=== PATIENT | female | born 1965 | race Caucasian/White ===

== ENCOUNTER 2020-01-22 17:10 | Emergency (ER) | payer OTHER ==
[~2020-01-22] VITALS: Ht 185.4 cm; Wt 74.2 kg
[2020-01-22 17:10] VITALS: BP 102/61
[2020-01-22] MEDS ORDERED: IV NORMAL SALINE 1,000ML 1,000 ML IV ONE ×2 (18:15→20:00)
--- NOTE | 2020-01-22 18:42 | PHYS DOC ---
Past History Past Medical History: No Pertinent History Past Surgical History: Hysterectomy Alcohol Use: Occasionally Adult General Chief Complaint Chief Complaint: MULTIPLE COMPLAINTS HPI HPI Patient is a 54-year-old female who presents for URI-like symptoms and diarrhea. Onset of symptoms was 2 days ago. Nothing known makes better or worse. Patien t denies any pain. Patient reports flying and visiting family in [place] 1 week ago. Unknown if she was in contact with any known COVID-19 positive individuals. Patient has had ongoing clear rhinorrhea and postnasal drip with looser stools than usual. Denies any recent medication changes, antibiotics, or other concerning risk factors for C. difficile infection. Patient had recorded temp of 102.0 prior to arrival prompting her to take 600 mg Motrin prior to arrival for evaluation at our ER today. Of note, patient healthy, denies any daily medications, has no chronic or concerning comorbidities Review of Systems Review of Systems Fourteen body systems of review of systems have been reviewed. See HPI for pertinent positives and negative responses, other hernandez all other systems are negative, non-pertinent or non-contributory Current Medications Current Medications Current Medications Medications (Trade) Dose Ordered Sig/Marta Start Time Stop Time Status Last Admin Dose Admin Ondansetron HCl (Zofran) 4 mg 1X ONCE 01/22/20 18:45 01/22/20 18:46 Sodium Chloride 1,000 ml @ 40 mls/hr 1X ONCE 01/22/20 18:15 01/23/20 19:14 Allergies Allergies Allergies Coded Allergies Type Severity Reaction Last Updated Verified No Known Drug Allergies 01/22/20 No Physical Exam Physical Exam Constitutional: Well developed, well nourished, no acute distress, non-toxic appearance. HENT: Normocephalic, atraumatic, bilateral external ears normal, oropharynx moist, postnasal drip present, no oral exudates, external nose unremarkable, clear rhinorrhea present, mildly engorged nasal turbinates bilaterally Eyes: PERRLA, EOMI, conjunctiva normal, no discharge. Neck: Normal range of motion, no tenderness, supple, no stridor. Cardiovascular: Heart rate regular, sinus rhythm, no murmurs rubs or gallops Lungs & Thorax: Bilateral breath sounds clear to auscultation Abdomen: Bowel sounds normal, soft, no tenderness, no masses, no pulsatile masses. Nonsurgical abdomen, no peritoneal signs Skin: Warm, dry, no erythema, no rash. Back: No tenderness, no CVA tenderness. Extremities: No tenderness, no cyanosis, no clubbing, ROM intact, no edema. Neurologic: Alert and oriented X 3, grossly normal motor & sensory function, no focal deficits noted. Psychologic: Affect normal, judgement normal, mood normal. Current Patient Data Vital Signs Vital Signs Date Time Temp Pulse Resp B/P (MAP) Pulse Ox O2 Delivery O2 Flow Rate FiO2 01/22/20 17:10 100.3 93 20 102/61 (75) 97 Room Air Lab Results Laboratory Tests Test 01/22/20 18:44 White Blood Count 7.7 x10^3/uL (4.0-11.0) Red Blood Count 4.63 x10^6/uL (3.50-5.40) Hemoglobin 14.1 g/dL (12.0-15.5) Hematocrit 41.5 % (36.0-47.0) Mean Corpuscular Volume 90 fL (79-100) Mean Corpuscular Hemoglobin 31 pg (25-35) Mean Corpuscular Hemoglobin Concent 34 g/dL (31-37) Red Cell Distribution Width 12.8 % (11.5-14.5) Platelet Count 184 x10^3/uL (140-400) Neutrophils (%) (Auto) 91 % (31-73) Lymphocytes (%) (Auto) 6 % (24-48) Monocytes (%) (Auto) 3 % (0-9) Eosinophils (%) (Auto) 0 % (0-3) Basophils (%) (Auto) 0 % (0-3) Neutrophils # (Auto) 7.0 x10^3uL (1.8-7.7) Lymphocytes # (Auto) 0.5 x10^3/uL (1.0-4.8) Monocytes # (Auto) 0.2 x10^3/uL (0.0-1.1) Eosinophils # (Auto) 0.0 x10^3/uL (0.0-0.7) Basophils # (Auto) 0.0 x10^3/uL (0.0-0.2) Sodium Level 135 mmol/L (136-145) Potassium Level 3.8 mmol/L (3.5-5.1) Chloride Level 99 mmol/L (98-107) Carbon Dioxide Level 28 mmol/L (21-32) Anion Gap 8 (6-14) Blood Urea Nitrogen 8 mg/dL (7-20) Creatinine 1.0 mg/dL (0.6-1.0) Estimated GFR (Cockcroft-Gault) 58.0 BUN/Creatinine Ratio 8 (6-20) Glucose Level 167 mg/dL (70-99) Calcium Level 9.2 mg/dL (8.5-10.1) Total Bilirubin 1.8 mg/dL (0.2-1.0) Aspartate Amino Transf (AST/SGOT) 19 U/L (15-37) Alanine Aminotransferase (ALT/SGPT) 20 U/L (14-59) Alkaline Phosphatase 94 U/L (46-116) Troponin I Quantitative < 0.017 ng/mL (0-0.055) Total Protein 7.2 g/dL (6.4-8.2) Albumin 3.7 g/dL (3.4-5.0) Albumin/Globulin Ratio 1.1 (1.0-1.7) Lipase 105 U/L (73-393) EKG EKG EKG ordered and interpreted by myself at 1841 hrs. as sinus rhythm at 84 bpm, unremarkable intervals, no axis deviation, no acute ischemic findings, no STEMI Radiology/Procedures Radiology/Procedures PROCEDURE: PORTABLE CHEST 1V PORTABLE CHEST 1V Clinical History: Reason: SOB, FEVER / Spl. Instructions: / History: Technique: AP view of the chest was obtained at 01/22/2020 12:00 AM. Comparison: None. Findings: The cardiomediastinal silhouette is normal. The pulmonary vasculature is normal. The lungs and pleural margins are clear. Impression: No evidence of an acute cardiopulmonary process. Electronically signed by: Omar Washington III, MD (01/22/2020 7:29 PM) [facility] Course & Med Decision Making Course & Med Decision Making Patient seen on immediate ER arrival Airway patent, breathing unlabored, vitals remarkable for hypotensive reading approximately 100s over 60s. IV access obtained Comprehensive history and physical obtained, subsequent diagnostic studies ordered A total of 2 L IV normal saline, 650 mg Tylenol, 4 mg IV Zofran, and 4 mg p.o. loperamide administered with moderate relief in symptoms Patient examined serially by numerous medical authorization specialist with improvement in condition throughout visit ER work-up discussed, grossly non-concerning for any emergent or surgical findings. Discussed most likely diagnosis of diarrhea secondary to COVID-19 versus gastroenteritis Also discussed this might be an acute presentation of more concerning pathology such as systemic infection versus other Ultimately, after therapy provided above, patient sided good home support and wa s ready for discharge home with continued supportive care advised, I feel this is appropriate as patient is tolerating p.o. and has good access to a PCP in outpatient setting Strict return precautions were discussed with good understanding by patient, all questions and concerns addressed prior to ER departure in stable condition Patient educated extensively on COVID-19 pathophysiology and need for quarantining until our test today comes back, she understood these well and was sent home with extensive education regarding being a person under investigation Daneile Disclaimer Daniele Disclaimer This electronic medical record was generated, in whole or in part, using a voice recognition dictation system. Departure Departure: Impression: Primary Impression: Person under investigation for COVID-19 Additional Impressions: Diarrhea Dehydration Disposition: HOME/RESIDENCE PRIOR TO ADM Condition: STABLE Referrals: PCP,NO (PCP) Patient Instructions: Dehydration, Adult, Diarrhea Additional Instructions: Short You were evaluated in the Emergency Department today for a cough. Your evaluation suggests a viral infection such as Coronavirus. It is important that you continue to self isolate and practice good hygiene at home. Please follow up with your primary care physician as discussed. Return to the Emergency Department if you experience worsening cough, fever, shortness of breath, recurrent vomiting, lethargy, or any other concerning symptoms. Thank you for choosing us for your care. Usted fue evaluado en el Departamento de Emergencia hoy por tos. Sin evaluacin sugiere narayan infeccin viral baldo el coronavirus. Es importante que contine aislndose y practicando narayan buena higiene en el hogar. Jayesh un seguimiento con sin mdico de atencin primaria baldo se discuti. Regrese al Departamento de Emergencias si experimenta un empeoramiento de la tos, fiebre, falta de aliento, vmitos recurrentes, letargo o cualquier otro sntoma relacionado. Eloy por elegir nosotros para sin atencin. Home Care Instructions for Patients with Mild Respiratory Infection Most people with respiratory infections like colds, the flu, and Coronavirus Disease (COVID-19) will have mild illness and can get better with appropriate home care and without the need to see a provider. People who are elderly, , or have a weak immune system, or other medical problem are at higher risk of more serious illness or complications. It is recommended that they carefully monitor their symptoms closely and seek medical care early if their symptoms get worse. TREATMENT AND MEDICAL CARE Treatment There is no specific treatment for most viruses including those that that cause the common cold and those that cause COVID-19. Sometimes there is treatment for the viruses that cause influenza if given early. Antibiotics treat infections ca used by bacteria, but they do not work against viruses.Most people recover on their own from these viruses, including COVID-19. Here are steps that you can take to help you get better: Rest Drink plenty of fluids Take sfaq-stu-voqncsd cold and flu medications to reduce fever and pain. Follow the instructions on the package, unless your doctor gave you instructions. Note that these medicines do not ``cure the illness and therefore do not stop you from spreading germs. Children should not be given medication that contains aspirin (acetylsalicylic acid) because it can cause a rare but serious illness called Roe syndrome. M edicines without aspirin include acetaminophen (Tylenol) and ibuprofen (Advil, Motrin). Children younger than age 2 should not be given any rzmz-mnb-rujduks cold medications without first speaking with a doctor.Seeking Medical Care You should seek medical care if you are not getting better within a week, or if your symptoms get worse. If you are elderly, , have a weak immune system, or other medical problems, call your doctor right away. It is best to call ahead of time to discuss your symptoms, if possible. This may allow you to receive the advice you need by phone. By avoiding a visit to a healthcare facility, you protect yourself from getting a new infection and protect others from catching an infection from you. If you do visit a healthcare facility, put on a mask to protect other patients and staff. It is recommended that you seek medical care for serious symptoms, such as: People with potentially life-threatening symptoms should call 911. If possible, put on a facemask before emergency medical services arrive.PROTECTING OTHERS Follow the steps below to help prevent the disease from spreading to people in your home and community.Stay home when you are sick Stay home - do not go to work, school, or public areas. Stay home for at least 24 hours after your symptoms have gone away without the use of fever-reducing medicines. If you must leave home while you are sick, try to avoid using public transportation, ride-shares, and taxis. Wear a mask if possible. Separate yourself from other people and animals in your home Stay in a specific room and away from other people in your home as much as possible. Use a separate bathroom, if available. Try to stay at least 6 feet from others. Do not handle pets or other animals while you are sick. Cover your coughs and sneezes Cover your mouth and nose with a tissue when you cough or sneeze. Throw used tissues in a lined trash can; immediately wash your hands. Avoid sharing personal household items Do not share dishes, drinking glasses, cups, eating utensils, towels, or bedding with other people or pets in your home. Wash them thoroughly with soap and water after use. Clean your hands often Wash your hands often with soap and water for at least 20 seconds. If soap and water are not available, clean your hands with an alcohol-based hand outside sales professional that contains at least 60% alcohol, covering all surfaces of your hands and rubbing them together until they feel dry. Use soap and water if your hands are visibly dirty. Clean all ``high-touch surfaces every day High touch surfaces include counters, tabletops, doorknobs, bathroom fixtures, toilets, phones, keyboards, tablets, and bedside tables. Also, clean any surfaces that may have body fluids on them. Use a household cleaning spray or wipe, according to the product label instructions. COVID-19 (Novel Coronavirus) FAQs for Inquiring Patients What do you do if you are worried that you have been exposed to COVID-19 but are without any symptoms? If you develop symptoms that may indicate an infection, contact your physician. These include fever, cough, and shortness of breath. Testing is not available for asymptomatic individuals, regardless of travel history. To reduce the chance of getting sick use general infection prevention measures such as hand washing, covering your mouth and nose when you cough or sneeze and discarding any tissues carefully, and staying home when you are sick.Can exceptions be made for patients who are really worried and want to be tested? Presently testing is only available through the [facility] Department of Public Health and Centers for Disease Control and Prevention. Only patients who meet the updated COVID-19 PUI definition may be tested. We do not control or set the PUI definition or evaluation criteria. We are unable to provide testing to patients who do not meet the strict criteria. Should patients cancel or postpone an upcoming trip? The decision about travel is personal and should be made in the context of a persons underlying health conditions, reason for travel and necessity of travel. Travel insurance generally does not cover cancellations due to concerns of infectious disease outbreaks. The Center for Disease Control has a section on travel notices. Situations are changing frequently and you should monitor the site for updates. Should situations change rapidly in a foreign country while they are traveling, you could be subject to quarantine or restrictions upon return to the [facility]. It is best to have a plan on how to return urgently if needed during a trip abroad. Because of how air circulates and is filtered on airplanes, most viruses do not spread easily on airplanes. CDC does not recommend use of facemasks during air travel.What other general precautions are advised? Patients should be instructed to: Avoid close contact with people who are sick. Avoid touching your eyes, nose and mouth. Stay home from work or school when they are sick. If you have a fever, you should remain home until 24 hours after fever resolves. Clean and disinfect frequently touched objects and surfaces using a regular household cleaning spray or wipe. Sneeze/cough into their elbow, not your hand. Practice frequent hand hygiene with soap and water (at least 20 seconds) or alcohol-based hand rub. Consider avoiding crowded places or mass gatherings, especially if you are immunocompromised or have chronic lung disease. There is no evidence to support transmission of COVID-19 from goods imported from [place]. Are there any special precautions that are recommended if I am ? There is not yet any information available about the susceptibility of women to COVID-19. As a general rule, women may be more susceptible to viral respiratory infections and at risk for more severe illness. The CDC guidance for COVID-19 and has answers to questions about transmission during delivery, as well as other situations. Should food, water, or medications be stockpiled? Should people telecommute? The CDC has excellent information on this. Please visit the CDCs guidance for getting your household ready for COVID-19. What should I do if I start feeling sick at work? And what should the workplace do for anyone exposed? Anyone who is sick with a fever and cough should stay home from work until at least 24 hours after resolution of fever, regardless of concerns for COVID-19. It is still influenza (flu) season and influenza remains far more common. Justification of Admission: Justification of Admission: Justification of Admission Dx: N/A Problem Qualifiers MINH LONDONO DO Jan 22, 2020 18:42
[2020-01-22] MEDS ORDERED: ONDANSETRON PF 4 MG/2 ML VIAL. IVP ONE (18:45)
[2020-01-22 19:16] LABS: BASO % 0 % (0-3); EOS % 0 % (0-3); HEMATOCRIT 41.5 % (36.0-47.0); HEMOGLOBIN 14.1 g/dL (12.0-15.5); LYMPH # 0.5 x10^3/uL (1.0-4.8); LYMPH % 6 % (24-48); MEAN CORPUSCULAR HEMOGLOBIN 31 pg (25-35); MEAN CORPUSCULAR HGB CONC 34 g/dL (31-37); MEAN CORPUSCULAR VOLUME 90 fL (79-100); MONO # 0.2 x10^3/uL (0.0-1.1); MONO % 3 % (0-9); NEUT % 91 % (31-73); PLATELET COUNT 184 x10^3/uL (140-400); RED BLOOD COUNT 4.63 x10^6/uL (3.50-5.40); RED CELL DISTRIBUTION WIDTH 12.8 % (11.5-14.5); WHITE BLOOD COUNT 7.7 x10^3/uL (4.0-11.0)
[2020-01-22 19:21] LABS: CALCIUM 9.2 mg/dL (8.5-10.1); POTASSIUM 3.8 mmol/L (3.5-5.1)
[2020-01-22 19:27] LABS: ALBUMIN 3.7 g/dL (3.4-5.0); ALBUMIN/GLOBULIN RATIO 1.1 (1.0-1.7); TOTAL BILIRUBIN 1.8 mg/dL (0.2-1.0); TOTAL PROTEIN 7.2 g/dL (6.4-8.2)
[2020-01-22] MEDS ORDERED: ACETAMINOPHEN 325 MG TABLET PO ONE (19:30)
--- NOTE | 2020-01-22 19:32 | RAD ---
PORTABLE CHEST 1V Clinical History: Reason: SOB, FEVER / Spl. Instructions: / History: Technique: AP view of the chest was obtained at 01/22/2020 12:00 AM. Comparison: None. Findings: The cardiomediastinal silhouette is normal. The pulmonary vasculature is normal. The lungs and pleural margins are clear. Impression: No evidence of an acute cardiopulmonary process. Electronically signed by: Omar Washington III, MD (01/22/2020 7:29 PM) [facility]
[2020-01-22] MEDS ORDERED: LOPERAMIDE 2 MG CAPSULE PO ONE (20:00)
--- NOTE | 2020-01-22 23:28 | EKG ---
[facility] ED [facility] [place] [id number] Test Date: 2020-01-22 Test Time: 18:31:44 Pat Name: DELFINA MERIDA Department: Room: Gender: F Data Scientist: : 1965 Requested By: MINH LONDONO Order Number: [id number] Reading MD: Measurements Intervals [place] Rate: 84 P: 59 CA: 142 QRS: 73 QRSD: 78 T: 51 QT: 352 QTc: 419 Interpretive Statements SINUS RHYTHM NORMAL ECG RI6.02 No previous ECG available for comparison
== END 2020-01-22 21:20 | disposition home or self-care (01) ==
LOC: ER 17:10
DX: R19.7 Diarrhea, unspecified (principal); E86.0 Dehydration; Z20.828 Contact with and (suspected) exposure to other viral communicable diseases
CPT/HCPCS: 36415; 71045; 80053; 83690; 84484; 85025; 93005; 96361; 96374; 99285; J2405; J7030; U0003

== ENCOUNTER 2020-01-24 06:57 | Emergency (ER) | payer OTHER ==
[~2020-01-24] VITALS: Ht 185.4 cm; Wt 74.2 kg
[2020-01-24] MEDS ORDERED: DICYCLOMINE HCL 20 MG TABLET ONE (07:20)
[2020-01-24] MEDS ORDERED: ONDANSETRON PF 4 MG/2 ML VIAL. ONE (07:20)
[2020-01-24] MEDS ORDERED: ACETAMINOPHEN 500 MG TABLET PO ONE ×2 (07:20→07:30)
--- NOTE | 2020-01-24 07:24 | PHYS DOC ---
Past History Past Medical History: No Pertinent History Past Surgical History: Hysterectomy Alcohol Use: Occasionally General Adult HPI: HPI: The history was obtained from the patient. Patient is a 54-year-old female with no reported PMH who presents with a chief complaint of nausea and diarrhea. Patient states she has had nausea and diarrhea over the past 3 days. She notes she was seen in our emergency department 2 days ago and tested for coronavirus. She states the results of her testing is pending. She notes that she had a temperature at her last ER visit. She estimates she has had 15 loose stools per day. She denies any blood in the stool. Denies any recent antibiotics or exposure to well water. Denies any recent travel. Does note that she was in [facility] 1 week ago but denies any known exposure to coronavirus. States that she checked her temperature yesterday noted to be 104.0 but states that she was wrapped up in warm blankets. She denies any dysuria, polyuria, hematuria. Does note some mild diffuse abdominal discomfort she attributes to multiple bowel movements. Denies any previous abdominal surgical history. Denies sore throat, cough, chest pain, or shortness of breath. Denies syncope. Does note some generalized weakness. Has tried Imodium at home with minimal relief. No other complaints. Review of Systems: Review of Systems: Constitutional: Positive for fever Eyes: Denies change in visual acuity HENT: Denies nasal congestion or sore throat Respiratory: Denies cough or shortness of breath Cardiovascular: Denies chest pain or edema GI: Positive for abdominal pain, nausea, diarrhea : Denies dysuria Musculoskeletal: Denies back pain or joint pain Integument: Denies rash Neurologic: Denies headache, focal weakness or sensory changes Endocrine: Denies polyuria or polydipsia Lymphatic: Denies swollen glands Psychiatric: Denies depression or anxiety Heart Score: Risk Factors: Risk Factors: DM, Current or recent (<one month) smoker, HTN, HLP, family history of CAD, obesity. Risk Scores: Score 0 - 3: 2.5% MACE over next 6 weeks - Discharge Home Score 4 - 6: 20.3% MACE over next 6 weeks - Admit for Clinical Observation Score 7 - 10: 72.7% MACE over next 6 weeks - Early Invasive Strategies Allergies: Allergies: Allergies Coded Allergies Type Severity Reaction Last Updated Verified No Known Drug Allergies 01/22/20 No Physical Exam: PE: Constitutional: Well developed, well nourished, no acute distress, non-toxic appearance. [] HENT: Normocephalic, atraumatic, bilateral external ears normal, oropharynx moist, no oral exudates, nose normal. [] Eyes: PERRLA, EOMI, conjunctiva normal, no discharge. [] Neck: Normal range of motion, no tenderness, supple, no stridor. [] Cardiovascular:Heart rate regular rhythm, no murmur [] Lungs & Thorax: Bilateral breath sounds clear to auscultation [] Abdomen: Soft, nontender, nonacute abdomen. No involuntary guarding or rigidity noted. No acute peritonitis. Skin: Warm, dry, no erythema, no rash. [] Back: No tenderness, no CVA tenderness. [] Extremities: No tenderness, no cyanosis, no clubbing, ROM intact, no edema. [] Neurologic: Alert and oriented X 3, normal motor function, normal sensory function, no focal deficits noted. [] Psychologic: Affect normal, judgement normal, mood normal. [] Current Patient Data: Labs: Laboratory Tests Test 01/24/20 07:15 01/24/20 08:40 01/24/20 09:11 White Blood Count 2.5 x10^3/uL Red Blood Count 4.47 x10^6/uL Hemoglobin 13.6 g/dL Hematocrit 39.7 % Mean Corpuscular Volume 89 fL Mean Corpuscular Hemoglobin 31 pg Mean Corpuscular Hemoglobin Concent 34 g/dL Red Cell Distribution Width 12.9 % Platelet Count 157 x10^3/uL Neutrophils (%) (Auto) 74 % Lymphocytes (%) (Auto) 15 % Monocytes (%) (Auto) 11 % Eosinophils (%) (Auto) 0 % Basophils (%) (Auto) 1 % Neutrophils # (Auto) 1.9 x10^3uL Lymphocytes # (Auto) 0.4 x10^3/uL Monocytes # (Auto) 0.3 x10^3/uL Eosinophils # (Auto) 0.0 x10^3/uL Basophils # (Auto) 0.0 x10^3/uL Sodium Level 135 mmol/L Potassium Level 3.8 mmol/L Chloride Level 100 mmol/L Carbon Dioxide Level 26 mmol/L Anion Gap 9 Blood Urea Nitrogen 8 mg/dL Creatinine 0.9 mg/dL Estimated GFR (Cockcroft-Gault) 65.5 BUN/Creatinine Ratio 9 Glucose Level 141 mg/dL Calcium Level 8.6 mg/dL Magnesium Level 1.8 mg/dL Total Bilirubin 1.7 mg/dL Aspartate Amino Transf (AST/SGOT) 23 U/L Alanine Aminotransferase (ALT/SGPT) 19 U/L Alkaline Phosphatase 78 U/L Total Protein 6.7 g/dL Albumin 3.1 g/dL Albumin/Globulin Ratio 0.9 Lipase 69 U/L Urine Collection Type Unknown Urine Color Shelly Urine Clarity Clear Urine pH 5.5 Urine Specific Frederick 1.025 Urine Protein 30 mg/dl Urine Glucose (UA) Neg mg/dL Urine Ketones (Stick) >=160 mg/dL Urine Blood Mod Urine Nitrite Neg Urine Bilirubin Neg Urine Urobilinogen Dipstick 0.2 mg/dL Urine Leukocyte Esterase Neg Urine RBC 6-10 /HPF Urine WBC 1-4 /HPF Urine Squamous Epithelial Cells Few /LPF Urine Bacteria 0 /HPF Urine Mucus Mod /LPF Bedside Urine HCG, Qualitative hcg negative Current Medications Medications (Trade) Dose Ordered Sig/Marta Route PRN Reason Start Time Stop Time Status Last Admin Dose Admin Sodium Chloride 1,000 ml @ 1,000 mls/hr 1X ONCE IV 01/24/20 07:30 01/24/20 08:30 DC 01/24/20 07:40 Metoclopramide HCl (Reglan) 10 mg 1X ONCE PO 01/24/20 07:30 01/24/20 07:31 DC Acetaminophen (Tylenol) 1,000 mg 1X ONCE PO 01/24/20 07:30 01/24/20 07:31 DC 01/24/20 07:39 Dicyclomine HCl (Bentyl) 20 mg 1X ONCE PO 01/24/20 07:30 01/24/20 07:31 DC 01/24/20 07:39 Acetaminophen (Tylenol) 500 mg STK-MED ONCE PO 01/24/20 07:20 01/24/20 07:20 DC Ondansetron HCl (Zofran) 4 mg STK-MED ONCE .ROUTE 01/24/20 07:20 01/24/20 07:20 DC Dicyclomine HCl (Bentyl) 20 mg STK-MED ONCE .ROUTE 01/24/20 07:20 01/24/20 07:20 DC Ondansetron HCl (Zofran) 4 mg 1X ONCE IVP 01/24/20 07:45 01/24/20 07:46 DC 01/24/20 07:44 Iohexol (Omnipaque 300 Mg/ml) 75 ml 1X ONCE IV 01/24/20 08:45 01/24/20 08:46 DC 01/24/20 09:01 Info (Do NOT chart on this entry -- for MONITORING) 1 each PRN DAILY PRN MC SEE COMMENTS 01/24/20 08:45 01/24/20 12:58 DC Sodium Chloride 1,000 ml @ 1,000 mls/hr 1X ONCE IV 01/24/20 09:00 01/24/20 09:59 DC 01/24/20 09:09 Sodium Chloride 1,000 ml @ 150 mls/hr 1X ONCE IV 01/24/20 09:30 01/24/20 12:58 DC 01/24/20 10:25 Ciprofloxacin Lactate 200 ml @ 200 mls/hr 1X ONCE IV 01/24/20 10:00 01/24/20 10:59 DC 01/24/20 10:12 Metronidazole 100 ml @ 100 mls/hr 1X ONCE IV 01/24/20 10:00 01/24/20 10:59 DC 01/24/20 10:04 Vital Signs: Vital Signs Date Time Temp Pulse Resp B/P (MAP) Pulse Ox O2 Delivery O2 Flow Rate FiO2 01/24/20 08:45 64 18 93/55 (68) 99 Room Air 01/24/20 08:35 64 18 84/47 (59) 100 Room Air 01/24/20 08:15 66 18 86/50 (62) 98 Room Air 01/24/20 07:45 85 18 100/53 (69) 96 Room Air 01/24/20 07:00 100.1 84 18 101/58 (72) 100 Room Air EKG: EKG: [] Radiology/Procedures: Radiology/Procedures: [][address] [address] IMAGING REPORT Signed PATIENT: DELFINA MERIDAACCOUNT: [id number] : 1965 LOCATION: ER AGE: 54 SEX: F EXAM STATUS: REG ER ORD. PHYSICIAN: ESTUARDO FUNK DO REASON: abdominal pain with diarrhea PROCEDURE: CT ABD PELV W/ IV CONTRST ONLY Examination: CT of the abdomen pelvis with IV contrast HISTORY: History of abdominal pain with diarrhea COMPARISON: None available TECHNIQUE: Axial CT images of the abdomen pelvis with IV contrast. Coronal and sagittal reformats are performed Exposure: One or more of the following individualized dose reduction techniques were utilized for this examination: 1. Automated exposure control 2. Adjustment of the mA and/or kV according to patient size 3. Use of iterative reconstruction technique FINDINGS: The bibasilar lungs are clear. No evidence of free air identified in the abdomen. The liver, spleen, adrenals grossly appears unremarkable. The gallbladder is mildly distended. The stomach is mildly distended. The visualized pancreas grossly appears unremarkable Mild prominent common bile duct measuring 7.5 mm in transverse dimension. It is moderate inflammatory fat stranding identified in the right lower quadrant of the abdomen with the few distended small bowel loops in the terminal ileum with thickened appearance of the wall of the descending colon with surrounding inflammatory fat stranding. Small amount of free fluid identified in the pelvis The appendix measures 7 mm in diameter with inflammatory fat stranding surrounding the appendix. Mild degenerative changes lumbar spine. IMPRESSION: 1. Moderate inflammatory fat stranding identified in the right lower quadrant abdomen surrounding the few distended small bowel loops with thickened appearance of the wall of the ascending colon likely terminal ileitis with colitis. Correlate with inflammatory bowel disease such as Crohn's disease. 2. The appendix is mildly distended measuring 7 mm in diameter with surrounding inflammatory fat stranding. Given the inflammatory fat stranding in the right lower quadrant secondary to ileitis and colitis, evaluation of the appendix is limited. Clinical correlation is recommended. 3. Small amount of free fluid identified in the pelvis. Electronically signed by: Sanjay Tang MD (01/24/2020 9:20 AM) [id number] DICTATED AND SIGNED BY: SANJAY TANG MD DATE: 01/24/20919 CC: ANGELIKA WEINER DO; ESTUARDO FUNK DO ~ Course & Med Decision Making: Course & Med Decision Making Pertinent Labs and Imaging studies reviewed. (See chart for details) Patient is a 54-year-old female who presents with chief complaint of diarrhea and abdominal discomfort for the past several days. Initial vital signs notable for decreased blood pressure. Her mentation was appropriate however. Basic labs were obtained and were grossly unremarkable. CT imaging shows diffuse inflammatory bowel changes worse in the terminal ileitis region. Potentially colitis. Patient did require multiple liters of IV fluids but her blood pressure did respond. I suspect that her low blood pressure is likely related to dehydration. She was given IV ciprofloxacin and Flagyl. Given her tenuous blood pressure I do feel she would be best cared for at [facility]. Signout has been given to hospitalist and she has remained hemodynamically and clinically stable while in our emergency department. []COVID-19 CRITERIA: The patient was evaluated during the global COVID-19 pandemic, and that diagnosis was suspected/considered upon their initial presentation. Their evaluation, treatment and testing was consistent with current guidelines for patients who present with complaints or symptoms that may be related to COVID-19. Daniele Disclaimer: Dragon Disclaimer: This electronic medical record was generated, in whole or in part, using a voice recognition dictation system. Departure Departure: Impression: Primary Impression: Colitis Additional Impression: Dehydration Disposition: XF SHT-TRM HOSP Condition: STABLE Referrals: ANGELIKA WEINER DO (PCP) Justification of Admission: Justification of Admission: Justification of Admission Dx: Yes Comments: colitis with hypotension ESTUARDO FUNK DO Jan 24, 2020 07:24
[2020-01-24] MEDS ORDERED: DICYCLOMINE HCL 20 MG TABLET PO ONE (07:30)
[2020-01-24] MEDS ORDERED: IV NORMAL SALINE 1,000ML 1,000 ML IV ONE ×3 (07:30→09:30)
[2020-01-24] MEDS ORDERED: METOCLOPRAMIDE 10 MG TABLET PO ONE (07:30)
[2020-01-24] MEDS ORDERED: ONDANSETRON PF 4 MG/2 ML VIAL. IVP ONE (07:45)
[2020-01-24 07:48] LABS: BASO % 1 % (0-3); EOS % 0 % (0-3); HEMATOCRIT 39.7 % (36.0-47.0); HEMOGLOBIN 13.6 g/dL (12.0-15.5); LYMPH # 0.4 x10^3/uL (1.0-4.8); LYMPH % 15 % (24-48); MEAN CORPUSCULAR HEMOGLOBIN 31 pg (25-35); MEAN CORPUSCULAR HGB CONC 34 g/dL (31-37); MEAN CORPUSCULAR VOLUME 89 fL (79-100); MONO # 0.3 x10^3/uL (0.0-1.1); MONO % 11 % (0-9); NEUT # 1.9 x10^3uL (1.8-7.7); NEUT % 74 % (31-73); PLATELET COUNT 157 x10^3/uL (140-400); RED BLOOD COUNT 4.47 x10^6/uL (3.50-5.40); RED CELL DISTRIBUTION WIDTH 12.9 % (11.5-14.5); WHITE BLOOD COUNT 2.5 x10^3/uL (4.0-11.0)
[2020-01-24 07:51] LABS: CALCIUM 8.6 mg/dL (8.5-10.1); CREATININE 0.9 mg/dL (0.6-1.0); GFR 65.5; POTASSIUM 3.8 mmol/L (3.5-5.1)
[2020-01-24 07:57] LABS: ALBUMIN 3.1 g/dL (3.4-5.0); ALBUMIN/GLOBULIN RATIO 0.9 (1.0-1.7); MAGNESIUM 1.8 mg/dL (1.8-2.4); TOTAL BILIRUBIN 1.7 mg/dL (0.2-1.0); TOTAL PROTEIN 6.7 g/dL (6.4-8.2)
[2020-01-24] MEDS ORDERED: IOHEXOL 300 MG/ML 75 ML VIAL. IV ONE (08:45)
[2020-01-24] MEDS ORDERED: CONTRAST GIVEN. MC PRN (08:45)
--- NOTE | 2020-01-24 09:22 | RAD ---
Examination: CT of the abdomen pelvis with IV contrast HISTORY: History of abdominal pain with diarrhea COMPARISON: None available TECHNIQUE: Axial CT images of the abdomen pelvis with IV contrast. Coronal and sagittal reformats are performed Exposure: One or more of the following individualized dose reduction techniques were utilized for this examination: 1. Automated exposure control 2. Adjustment of the mA and/or kV according to patient size 3. Use of iterative reconstruction technique FINDINGS: The bibasilar lungs are clear. No evidence of free air identified in the abdomen. The liver, spleen, adrenals grossly appears unremarkable. The gallbladder is mildly distended. The stomach is mildly distended. The visualized pancreas grossly appears unremarkable Mild prominent common bile duct measuring 7.5 mm in transverse dimension. It is moderate inflammatory fat stranding identified in the right lower quadrant of the abdomen with the few distended small bowel loops in the terminal ileum with thickened appearance of the wall of the descending colon with surrounding inflammatory fat stranding. Small amount of free fluid identified in the pelvis The appendix measures 7 mm in diameter with inflammatory fat stranding surrounding the appendix. Mild degenerative changes lumbar spine. IMPRESSION: 1. Moderate inflammatory fat stranding identified in the right lower quadrant abdomen surrounding the few distended small bowel loops with thickened appearance of the wall of the ascending colon likely terminal ileitis with colitis. Correlate with inflammatory bowel disease such as Crohn's disease. 2. The appendix is mildly distended measuring 7 mm in diameter with surrounding inflammatory fat stranding. Given the inflammatory fat stranding in the right lower quadrant secondary to ileitis and colitis, evaluation of the appendix is limited. Clinical correlation is recommended. 3. Small amount of free fluid identified in the pelvis. Electronically signed by: Sanjay Tang MD (01/24/2020 9:20 AM) [id number]
[2020-01-24 09:30] LABS: BACTERIA,URINE 0 /HPF (0-FEW); BILIRUBIN,URINE NEG (NEG); CLARITY,URINE CLEAR; COLOR,URINE AMBER; GLUCOSE,URINE NEG (NEG); NITRITE,URINE NEG (NEG); SQUAMOUS EPITHELIAL CELL,UR FEW /LPF; UROBILINOGEN,URINE 0.2 mg/dL (0.2 mg/dL)
[2020-01-24] MEDS ORDERED: CIPROFLOXACIN 400MG PREMIX 200 ML IV ONE (10:00)
[2020-01-24 13:00] VITALS: BP 100/53
== END 2020-01-24 12:58 | disposition short-term general hospital (02) ==
LOC: ER 06:57
DX: K52.9 Noninfective gastroenteritis and colitis, unspecified (principal); E86.0 Dehydration
CPT/HCPCS: 36415; 74177; 80053; 81001; 81025; 83690; 83735; 85025; 96361; 96365; 96366; 96375; 99285; J0744; J2405; J3490; J7030; Q9967